=== PATIENT | female | born 1995 | race Caucasian/White ===

== ENCOUNTER 2016-07-01 14:42 | Emergency (ER) | payer OTHER ==
[~2016-07-01 14:42] MED LIST: ACYCLOVIR200 MG PO; CORRECTOL100 MG PO; IBUPROFEN200 M1 PO; OXYCODONE/ACETA1 TA1 PO; PRENATABS RX PO; TAMIFLU75 MG PO
--- NOTE | 2016-07-01 15:18 | ED CLINICAL REPORT ---
Clinical Report - Physicians/Mid Levels [facility] [address] [place] [address] 07/01/2016 14:42 [id number] Time Seen: 14:56; upon arrival, initial patient contact, initial documentation, patient care assumed. Arrived- By private vehicle. Historian- patient. HISTORY OF PRESENT ILLNESS Chief Complaint: EYE PAIN, REDNESS and IRRITATION. This started about 5 days ago, involves the left eye, is characterized as mild and has been constant and is still present. The patient did not sustain an injury. Eye discomfort, burning, redness, irritation and discharge. No eye itching, eyelid swelling, blurred vision, double vision or decreased vision. No loss of vision. Recent medical care: The patient was seen in a clinic recently. Seen for same infection, went to walk in clinic, given rx eye drops, doens't know the name of them, eye is no better so came here. Evaluation/treatment- says eye was stained and examined and that they didn't find anything. Diagnosis: eye infection and conjunctivitis. REVIEW OF SYSTEMS All systems otherwise negative, except as recorded above. PAST HISTORY See nurses notes. PROBLEMS: Dizziness. Back Pain. Chronic Back Pain. --14:55 Meghan Rader R.N. Herpes Genitalis. Headache. Immunizations. Abdominal Pain. STD - Sexually Transmitted Disease. --14:56 Meghan Rader R.N. ADDITIONAL SURGERIES: no known surgeries. She does not wear contact lenses. SOCIAL HISTORY Light tobacco smoker. No alcohol use or drug use. FAMILY HISTORY No significant family medical history. ADDITIONAL NOTES The nursing notes have been reviewed with agreement regarding the chief complaint, HPI, ROS, PMH and patient medications and allergies. PHYSICAL EXAM Vital Signs: 07/01/2016 14:52 BP: 125/91. HR: 84. RR: 18. O2 saturation: 99%. Temp: 98.6 F. Pain level now: 0/10. Have been reviewed as normal. Appearance: Alert. Oriented X3. No acute distress. Rt Eye: Right eye exam normal. Eyes: Left eyelid everted for examination. Left cornea examined with fluorescein stain. Eyelids appear normal to inspection. Conjunctivae and sclerae do not appear normal to inspection. Corneas appear normal to inspection. Pupils equal, round and reactive to light. Accommodation normal. Funduscopic exam normal. Visual cannon normal. EOMs intact. Periorbital areas appear normal to inspection. Anterior chambers clear. Anterior chambers of normal depth. Lt Eye: Left eye exam normal. Internal stye with swelling. No associated erythema. Mild conjunctival edema. Moderate exudate present. Fluorescein dye uptake on the cornea. No corneal foreign body or abrasion. No other corneal abnormality. Neck: Neck supple. Normal inspection. Respiratory: No respiratory distress. Skin: No rash. Extremities: Extremities negative. Neuro: Oriented X 3. Mood/affect normal. No motor deficit. No sensory deficit. PROGRESS AND PROCEDURES PROCEDURES (L eye examined under wood lamp using properacaine eye drops, fluorscein stain, mild dye update at 5:00 position, appears linear rub molina, very tiny upper lid chalazion seen in medial side, no fb and rest of exam unremarkable). Course of Care: nurse called pt's pharmacy to find out eye drop rx, ofloxacin. Patient counseled in person regarding the patient's stable condition and diagnosis. Differential Diagnosis: Other possible considerations: conjunctivitis - allergic, bacterial, viral, fb, corneal abrasion. Above considerations are based on history and physical exam. Differential diagnosis was discussed with patient. Disposition: Discharged home in good and unchanged condition (15:18). Condition: good and stable. CLINICAL IMPRESSION Acute mucopurulent conjunctivitis of the left eye. INSTRUCTIONS (stop other eye drop). Warnings: GENERAL WARNINGS: Return or contact your physician immediately if your condition worsens or changes unexpectedly, if not improving as expected, or if other problems arise. Specifically return if problem worsens. Prescription Medications: Polytrim ophthalmic solution: Instill 1 drop into affected eye every 3 hours while awake (max 6 doses per day) for 1 week. Dispense five (5) mL. No refills. Substitution is permissible. Understanding of the discharge instructions verbalized by patient. Follow-up with: Ewa Wong MD, Ophthalmology, [facility], [address] [place] [address] - [address], [place] [address]; Trip Rodriguez MD, Ophthalmology, , [facility], [address] [place] [address]; Rory Gonzalez MD, Ophthalmology, , [address], [place], [facility]; Trip Mcmanus MD, Ophthalmology, , [address], [place] [address]; Mario Kern MD, Ophthalmology, , [address], [place], [facility]; Matheus Coker MD, Ophthalmology, , [address], , [place], [facility]; Sherry Hughes MD, Ophthalmology, , [address], [place] [address]; Trip Araujo MD, Ophthalmology, , [facility], [address] [place] [address] Follow up in about two days even if well. Call for an appointment. Summary of care provided to patient. (Electronically signed by Desirae Stahl A.R.N.P. 07/01/2016 16:01)
--- NOTE | 2016-07-01 15:18 | ED CLINICAL REPORT ---
Clinical Report - Physicians/Mid Levels [facility] [address] [place] [address] 07/01/2016 14:42 [id number] Time Seen: 14:56; upon arrival, initial patient contact, initial documentation, patient care assumed. Arrived- By private vehicle. Historian- patient. HISTORY OF PRESENT ILLNESS Chief Complaint: EYE PAIN, REDNESS and IRRITATION. This started about 5 days ago, involves the left eye, is characterized as mild and has been constant and is still present. The patient did not sustain an injury. Eye discomfort, burning, redness, irritation and discharge. No eye itching, eyelid swelling, blurred vision, double vision or decreased vision. No loss of vision. Recent medical care: The patient was seen in a clinic recently. Seen for same infection, went to walk in clinic, given rx eye drops, doens't know the name of them, eye is no better so came here. Evaluation/treatment- says eye was stained and examined and that they didn't find anything. Diagnosis: eye infection and conjunctivitis. REVIEW OF SYSTEMS All systems otherwise negative, except as recorded above. PAST HISTORY See nurses notes. PROBLEMS: Dizziness. Back Pain. Chronic Back Pain. --14:55 Meghan Rader R.N. Herpes Genitalis. Headache. Immunizations. Abdominal Pain. STD - Sexually Transmitted Disease. --14:56 Meghan Rader R.N. ADDITIONAL SURGERIES: no known surgeries. She does not wear contact lenses. SOCIAL HISTORY Light tobacco smoker. No alcohol use or drug use. FAMILY HISTORY No significant family medical history. ADDITIONAL NOTES The nursing notes have been reviewed with agreement regarding the chief complaint, HPI, ROS, PMH and patient medications and allergies. PHYSICAL EXAM Vital Signs: 07/01/2016 14:52 BP: 125/91. HR: 84. RR: 18. O2 saturation: 99%. Temp: 98.6 F. Pain level now: 0/10. Have been reviewed as normal. Appearance: Alert. Oriented X3. No acute distress. Rt Eye: Right eye exam normal. Eyes: Left eyelid everted for examination. Left cornea examined with fluorescein stain. Eyelids appear normal to inspection. Conjunctivae and sclerae do not appear normal to inspection. Corneas appear normal to inspection. Pupils equal, round and reactive to light. Accommodation normal. Funduscopic exam normal. Visual cannon normal. EOMs intact. Periorbital areas appear normal to inspection. Anterior chambers clear. Anterior chambers of normal depth. Lt Eye: Left eye exam normal. Internal stye with swelling. No associated erythema. Mild conjunctival edema. Moderate exudate present. Fluorescein dye uptake on the cornea. No corneal foreign body or abrasion. No other corneal abnormality. Neck: Neck supple. Normal inspection. Respiratory: No respiratory distress. Skin: No rash. Extremities: Extremities negative. Neuro: Oriented X 3. Mood/affect normal. No motor deficit. No sensory deficit. PROGRESS AND PROCEDURES PROCEDURES (L eye examined under wood lamp using properacaine eye drops, fluorscein stain, mild dye update at 5:00 position, appears linear rub molina, very tiny upper lid chalazion seen in medial side, no fb and rest of exam unremarkable). Course of Care: nurse called pt's pharmacy to find out eye drop rx, ofloxacin. Patient counseled in person regarding the patient's stable condition and diagnosis. Differential Diagnosis: Other possible considerations: conjunctivitis - allergic, bacterial, viral, fb, corneal abrasion. Above considerations are based on history and physical exam. Differential diagnosis was discussed with patient. Disposition: Discharged home in good and unchanged condition (15:18). Condition: good and stable. CLINICAL IMPRESSION Acute mucopurulent conjunctivitis of the left eye. INSTRUCTIONS (stop other eye drop). Warnings: GENERAL WARNINGS: Return or contact your physician immediately if your condition worsens or changes unexpectedly, if not improving as expected, or if other problems arise. Specifically return if problem worsens. Prescription Medications: Polytrim ophthalmic solution: Instill 1 drop into affected eye every 3 hours while awake (max 6 doses per day) for 1 week. Dispense five (5) mL. No refills. Substitution is permissible. Understanding of the discharge instructions verbalized by patient. Follow-up with: Ewa Wong MD, Ophthalmology, [facility], [address] [place] [address] - [address], [place] [address]; Trip Rodriguez MD, Ophthalmology, , [facility], [address] [place] [address]; Rory Gonzalez MD, Ophthalmology, , [address], [place], [facility]; Trip Mcmanus MD, Ophthalmology, , [address], [place] [address]; Mario Kern MD, Ophthalmology, , [address], [place], [facility]; Matheus Coker MD, Ophthalmology, , [address], , [place], [facility]; Sherry Hughes MD, Ophthalmology, , [address], [place] [address]; Trip Araujo MD, Ophthalmology, , [facility], [address] [place] [address] Follow up in about two days even if well. Call for an appointment. Summary of care provided to patient. (Electronically signed by Desirae Stahl A.R.N.P. 07/01/2016 16:01)
--- NOTE | 2016-07-01 15:18 | ED NURSING NOTES ---
Clinical Report - Nurses [facility] [address] [place] [address] 07/01/2016 14:42 [id number] TRI[facility] Triage time 14:52 Jul 01 2016. Acuity: LEVEL 4. Chief Complaint: REDNESS TO RIGHT EYE. 14:59 07/01/16. SEPSIS SCREEN: Sepsis Screen. Negative (no infection suspected/documented). ADORE COMA SCORE: [place] Coma Scale: 15- eyes open spontaneously (4); best verbal response- oriented x 4 (5); best motor response- obeys commands (6). --14:59 Meghan Rader R.N. 14:52 07/01/16. BP: 125/91 (large adult cuff) taken on the left arm, while sitting. HR: 84. RR: 18. O2 saturation: 99% on room air. Temp: 98.6 F (oral). Pain level now: 0/10. --14:59 Meghan Rader R.N. Weight: 99.7 kg stated. Height/Length: 62 inches Per Patient. BMI: 40.2. --14:55 Meghan Rader R.N. Medications Acyclovir Oral, as needed. Suboxone Sublingual. --14:55 Meghan Rader R.N. Allergies Amoxicillin. --14:55 Meghan Rader R.N. History Arrived by private vehicle. Historian: patient. Accompanied by family. Primary physician (Dr Rausch). Onset. (5 days ago). She did not sustain an injury. ( Patient has redness, oozing, watering, in left eye. She has been using eye drops x 3 days. Nutrition Partner son had pinkeye). She has had a moderate amount of discharge from the left eye. 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 PAST MEDICAL HX: Immunizations: status is unknown. Last normal menstrual period- 1 weeks ago. SOCIAL HX: Current every day light tobacco smoker- less than 1/2 a pack per day. No alcohol use or drug use. No infectious disease exposure. ABUSE ASSESSMENT: No report of abuse. --14:59 Meghan Rader R.N. PROBLEMS: Dizziness. Back Pain. Chronic Back Pain. --14:55 Meghan Rader R.N. Herpes Genitalis. Headache. Immunizations. Abdominal Pain. STD - Sexually Transmitted Disease. --14:56 Meghan Rader R.N. ADDITIONAL SURGERIES: no known surgeries. Interventions ID band on patient. To treatment room. --14:59 Meghan Rader R.N. PHYSICAL ASSESSMENT 15:00 07/01/16. Ambulatory to room. GENERAL / NEURO / PSYCH: Alert. Appears in no acute distress. HEENT: No facial asymmetry noted. Pupils equal, round and reactive to light. Runny nose. RESPIRATORY: Respirations not labored. CVS: Capillary refill less than 2 seconds. SKIN: Skin is warm. Normal skin turgor. --15:00 Meghan Rader R.N. HEENT: Visual acuity: left eye 20/40; right eye 20/70. --15:03 Meghan Rader R.N. NURSING PROGRESS NOTES The plan of care for this patient has been created. Patient gowned. Head of bed elevated. Reassurance given. Two patient identifiers checked. Call light placed in reach. Side rails up x 1. Bed placed in lowest position. Brakes of bed on. Patient ready for evaluation- chart flagged and FOUNDRY MOLDER notified. --15:01 Meghan Rader R.N. 15:16 07/01/2016 Proparacaine Eye Drops Opthalmic solution 2 drop given. Given in the left eye. Allergies verified and confirmed 5 rights. --15:16 Meghan Rader R.N. 15:16 07/01/2016 FLUORESCEIN Opth soln Opthalmic solution 1 Strip given. Given in the left eye. Allergies verified and confirmed 5 rights. --15:16 Meghan Rader R.N. DISPOSITION / DISCHARGE Departure time: 15:47 Jul 01 2016. Condition at departure: unchanged. No learning barriers present. Discharge instructions provided and reviewed with the patient. Reviewed medication(s) side effects, precautions and dosing information. Prescription(s) given to the patient. Treatments reviewed (eye care). Reviewed referral to an irrigationist designer. Patient verbalized understanding. Written instructions provided in Egyptian. The patient was discharged by the nurse practitioner. She was discharged home and accompanied by perinatal tech. She left the Emergency Department ambulatory. Photonics Engineering Technologist driving. --15:47 Meghan Rader R.N. 15:45 07/01/16. BP: 122/86 (large adult cuff) taken on the left arm, while sitting. HR: 80. RR: 16. O2 saturation: 100% on room air. Temp: 98.6 F (oral). Pain level now: 0/10. --15:47 Meghan Rader R.N. Locked/Released at 07/01/2016 15:47 by Meghan Rader R.N.
--- NOTE | 2016-07-01 15:18 | ED NURSING NOTES ---
Clinical Report - Nurses [facility] [address] [place] [address] 07/01/2016 14:42 [id number] TRI[facility] Triage time 14:52 Jul 01 2016. Acuity: LEVEL 4. Chief Complaint: REDNESS TO RIGHT EYE. 14:59 07/01/16. SEPSIS SCREEN: Sepsis Screen. Negative (no infection suspected/documented). ADORE COMA SCORE: [place] Coma Scale: 15- eyes open spontaneously (4); best verbal response- oriented x 4 (5); best motor response- obeys commands (6). --14:59 Meghan Rader R.N. 14:52 07/01/16. BP: 125/91 (large adult cuff) taken on the left arm, while sitting. HR: 84. RR: 18. O2 saturation: 99% on room air. Temp: 98.6 F (oral). Pain level now: 0/10. --14:59 Meghan Rader R.N. Weight: 99.7 kg stated. Height/Length: 62 inches Per Patient. BMI: 40.2. --14:55 Meghan Rader R.N. Medications Acyclovir Oral, as needed. Suboxone Sublingual. --14:55 Mgehan Rader R.N. Allergies Amoxicillin. --14:55 Meghan Rader R.N. History Arrived by private vehicle. Historian: patient. Accompanied by family. Primary physician (Dr Rausch). Onset. (5 days ago). She did not sustain an injury. ( Patient has redness, oozing, watering, in left eye. She has been using eye drops x 3 days. Director Of Teaching And Learning son had pinkeye). She has had a moderate amount of discharge from the left eye. 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 PAST MEDICAL HX: Immunizations: status is unknown. Last normal menstrual period- 1 weeks ago. SOCIAL HX: Current every day light tobacco smoker- less than 1/2 a pack per day. No alcohol use or drug use. No infectious disease exposure. ABUSE ASSESSMENT: No report of abuse. --14:59 Meghan Rader R.N. PROBLEMS: Dizziness. Back Pain. Chronic Back Pain. --14:55 Meghan Rader R.N. Herpes Genitalis. Headache. Immunizations. Abdominal Pain. STD - Sexually Transmitted Disease. --14:56 Meghan Rader R.N. ADDITIONAL SURGERIES: no known surgeries. Interventions ID band on patient. To treatment room. --14:59 Meghan Rader R.N. PHYSICAL ASSESSMENT 15:00 07/01/16. Ambulatory to room. GENERAL / NEURO / PSYCH: Alert. Appears in no acute distress. HEENT: No facial asymmetry noted. Pupils equal, round and reactive to light. Runny nose. RESPIRATORY: Respirations not labored. CVS: Capillary refill less than 2 seconds. SKIN: Skin is warm. Normal skin turgor. --15:00 Meghan Rader R.N. HEENT: Visual acuity: left eye 20/40; right eye 20/70. --15:03 Meghan Rader R.N. NURSING PROGRESS NOTES The plan of care for this patient has been created. Patient gowned. Head of bed elevated. Reassurance given. Two patient identifiers checked. Call light placed in reach. Side rails up x 1. Bed placed in lowest position. Brakes of bed on. Patient ready for evaluation- chart flagged and INFORMATION TECHNOLOGY AUDIT MANAGER notified. --15:01 Meghan Rader R.N. 15:16 07/01/2016 Proparacaine Eye Drops Opthalmic solution 2 drop given. Given in the left eye. Allergies verified and confirmed 5 rights. --15:16 Meghan Rader R.N. 15:16 07/01/2016 FLUORESCEIN Opth soln Opthalmic solution 1 Strip given. Given in the left eye. Allergies verified and confirmed 5 rights. --15:16 Meghan Rader R.N. DISPOSITION / DISCHARGE Departure time: 15:47 Jul 01 2016. Condition at departure: unchanged. No learning barriers present. Discharge instructions provided and reviewed with the patient. Reviewed medication(s) side effects, precautions and dosing information. Prescription(s) given to the patient. Treatments reviewed (eye care). Reviewed referral to an stock control supervisor. Patient verbalized understanding. Written instructions provided in Irish. The patient was discharged by the nurse practitioner. She was discharged home and accompanied by tobacco wetter. She left the Emergency Department ambulatory. Steelworker driving. --15:47 Meghan Rader R.N. 15:45 07/01/16. BP: 122/86 (large adult cuff) taken on the left arm, while sitting. HR: 80. RR: 16. O2 saturation: 100% on room air. Temp: 98.6 F (oral). Pain level now: 0/10. --15:47 Meghan Rader R.N. Locked/Released at 07/01/2016 15:47 by Meghan Rader R.N.
--- NOTE | 2016-07-01 15:19 | ED ORDER SUMMARY ---
..... Patient: SILVANA NORTON OrderSheet [facility] VisitID: [id number] [address] [place] [address] 20y, F Registration Date/Time: 07/01/2016 ORDER SHEET Weight: 99.7 kg (stated) Allergies: Amoxicillin GENERAL ORDERS: MEDICATION ORDERS: Proparacaine Eye Drops (Solution 0.5 %) 2 drops (place at bedside) (15:04 07/01/2016 HBivens A.R.N.P.) (15:16 Bakaris R.N.) Fluorescein Eye Strips 1 strips (NOW) (15:04 07/01/2016 HBivens A.R.N.P.) (15:16 JSanders R.N.) IV FLUIDS: ORDER SHEET NOTES: [Electronically signed by Meghan Rader R.N. (15:47 07/01/2016)] [Electronically signed by Desirae StahlR.N.P. (16:01 07/01/2016)] [Electronically locked/signed by Meghan Rader R.N. (15:47 07/01/2016)]
--- NOTE | 2016-07-01 15:19 | ED ORDER SUMMARY ---
..... Patient: SILVANA NORTON OrderSheet [facility] VisitID: [id number] [address] [place] [address] 20y, F Registration Date/Time: 07/01/2016 ORDER SHEET Weight: 99.7 kg (stated) Allergies: Amoxicillin GENERAL ORDERS: MEDICATION ORDERS: Proparacaine Eye Drops (Solution 0.5 %) 2 drops (place at bedside) (15:04 07/01/2016 HBivens A.R.N.P.) (15:16 Bakaris R.N.) Fluorescein Eye Strips 1 strips (NOW) (15:04 07/01/2016 HBivens A.R.N.P.) (15:16 JSanders R.N.) IV FLUIDS: ORDER SHEET NOTES: [Electronically signed by Meghan Rader R.N. (15:47 07/01/2016)] [Electronically signed by Desirae StahlR.N.P. (16:01 07/01/2016)] [Electronically locked/signed by Meghan Rader R.N. (15:47 07/01/2016)]
--- NOTE | 2016-07-01 16:02 | ED MAR SUMMARY ---
..... Medication Administration Record [facility] [address] [place] [address] Patient: SILVANA NORTON Visit ID: [id number] 20y, F Weight: 99.7 kg Height/Length: 62 in BMI: 40.2 ALLERGIES: Amoxicillin Given 15:16 07/01/2016 Meghan Rader RDes Medication Administered: PROPARACAINE [EYE DROPS], Dose: 2 drop Opthalmic solution Eye Drops. Medication Ordered: Proparacaine Eye Drops (Solution 0.5 %) 2 drops (place at bedside). Given 15:16 07/01/2016 Meghan Rader, RRaniNRani Medication Administered: FLUORESCEIN [EYE STRIPS], Dose: 1 Strip Opthalmic solution Opth soln. Medication Ordered: Fluorescein Eye Strips 1 strips (NOW).
--- NOTE | 2016-07-01 16:02 | ED MAR SUMMARY ---
..... Medication Administration Record [facility] [address] [place] [address] Patient: SILVANA NORTON Visit ID: [id number] 20y, F Weight: 99.7 kg Height/Length: 62 in BMI: 40.2 ALLERGIES: Amoxicillin Given 15:16 07/01/2016 Meghan Rader RDes Medication Administered: PROPARACAINE [EYE DROPS], Dose: 2 drop Opthalmic solution Eye Drops. Medication Ordered: Proparacaine Eye Drops (Solution 0.5 %) 2 drops (place at bedside). Given 15:16 07/01/2016 Meghan Rader, RRaniNRani Medication Administered: FLUORESCEIN [EYE STRIPS], Dose: 1 Strip Opthalmic solution Opth soln. Medication Ordered: Fluorescein Eye Strips 1 strips (NOW).
--- NOTE | 2016-07-01 16:02 | ED DISCHARGE INSTRUCTIONS ---
Patient: SILVANA NORTON General Instructions [facility] VisitID: [id number] [place] [address] 20y, F Registration Date/Time: 07/01/2016 INSTRUCTIONS (stop other eye drop). Warnings: GENERAL WARNINGS: Return or contact your physician immediately if your condition worsens or changes unexpectedly, if not improving as expected, or if other problems arise. Specifically return if problem worsens. Prescription Medications: Polytrim ophthalmic solution: Instill 1 drop into affected eye every 3 hours while awake (max 6 doses per day) for 1 week. Dispense five (5) mL. No refills. Substitution is permissible. Understanding of the discharge instructions verbalized by patient. Follow-up with: Ewa Wong MD, Ophthalmology, [facility], [address] [place] [address] - [address], [place] [address]; Trip Rodriguez MD, Ophthalmology, , [facility], [address] [place] [address]; Rory Gonzalez MD, Ophthalmology, , [address], [place] [address]; Trip Mcmanus MD, Ophthalmology, , [address], [place] [address]; Mario Kern MD, Ophthalmology, , [address] [address]; Mathesu Coker MD, Ophthalmology, , [address], [place] [address]; Sherry Hughes MD, Ophthalmology, , [address], [place] [address]; Trip Araujo MD, Ophthalmology, , [facility] [place] [address] Follow up in about two days even if well. Call for an appointment. Summary of care provided to patient. ADDITIONAL INFORMATION Conjunctivitis, Non-Specific The membrane that covers your eye is inflamed. Any itching, burning or irritation should go away within the next 24 hours. Conjunctivitis may be related to a particle that was in your eye. If so, it was washed out with your tears or irrigation treatment. Being exposed to liquid chemicals or fumes may also cause this reaction. Your condition does not appear to be due to an eye infection. Home Care: Apply a cold pack (ice in a plastic bag, wrapped in a towel) over the eye for 20 minutes at a time. This will reduce pain. Eye drops may be prescribed to reduce irritation or redness. Otherwise, Visine or similar [id number] decongestant eye drops may be used. You may use acetaminophen (Tylenol) or ibuprofen (Motrin, Advil) to control pain, unless another medicine was prescribed. [ NOTE: If you have chronic liver or kidney disease or ever had a stomach ulcer or GI bleeding, talk with your doctor before using these medicines.] Follow Up with your doctor or this facility as directed, or if your symptoms have not improved after 24 hours. Get Prompt Medical Attention if any of the following occur: Increased eyelid swelling Increase in eye pain Increased redness or drainage from the eye Failure of normal vision to return within 24-48 hours. Trimethoprim Sulfate, Polymyxin B Sulfate Eye drops, solution What is this medicine? POLYMYXIN B and TRIMETHOPRIM (hayley i MIX in B and trye METH oh prim) eye drops treat certain eye infections caused by bacteria. How should I use this medicine? This medicine is used in the eye. Follow the directions on the prescription label. Wash your hands before and after use. Tilt your head back slightly. Pull your lower eyelid down gently to form a pouch. Do not touch the tip of the dropper to your eye, fingertips, or other surface. Squeeze the prescribed number of drops into the pouch. Close the eye gently to spread the drops. Use your medicine at regular intervals. Do not take your medicine more often than directed. Use all of your medicine as directed even if you think your are better. Do not skip doses or stop your medicine early. Talk to your senior medical technologist regarding the use of this medicine in children. While this drug may be prescribed for children and infants for selected conditions, precautions do apply. What side effects may I notice from receiving this medicine? Side effects that you should report to your doctor or health residential care officer as soon as possible: burning, stinging, or swelling change in vision or blurred vision that will not go away eye pain itching and redness rash Side effects that usually do not require medical attention (report to your doctor or health residential care officer if they continue or are bothersome): temporary blurred vision after applying temporary watering or stinging What may interact with this medicine? Interactions are not expected. Do not use any other eye products without advice of your doctor or health residential care officer. What if I miss a dose? If you miss a dose, use it as soon as you can. If it is almost time for your next dose, use only that dose. Do not use double or extra doses. Where should I keep my medicine? Keep out of the reach of children. Store at room temperature 15 to 25 degrees C (59 to 77 degrees F). Protect from light. To prevent the spread of infection, it is best to throw away any unused eye drops after you finish the course of treatment. Throw away any unused medicine after the expiration date. What should I tell my health care provider before I take this medicine? They need to know if you have any of these conditions: wear contact lenses an unusual or allergic reaction to polymyxin B, trimethoprim, other medicines, foods, dyes, or preservatives or trying to get breast-feeding What should I watch for while using this medicine? Check with your doctor or health residential care officer if your condition does not get better after 5 days, or if it gets worse. If you wear contact lenses, ask when you can use your lenses again. A burning or stinging reaction that does not go away may mean you are allergic to this product. Stop use and call your doctor or health residential care officer. To prevent the spread of infection, do not share eye products or other personal items with anyone else. You have been given the following additional information: Conjunctivitis, Non-Specific Trimethoprim Sulfate, Polymyxin B Sulfate Eye drops, solution (Electronically signed by Desirae Stahl A.R.N.P. 07/01/2016 16:01)
--- NOTE | 2016-07-01 16:02 | ED MED RECONCILIATION SUMMARY ---
Patient: SILVANA NORTON Medication Reconciliation Report [facility] VisitID: [id number] [address] [place] [address] 20y, F Registration Date/Time: 07/01/2016 Weight: 99.7 kg Height/Length: 62 in. BMI: 40.2 ALLERGIES: Amoxicillin The patient's Home Medications are listed below: THE FOLLOWING MEDICATIONS NEED TO BE RECONCILED: Acyclovir Oral Suboxone Sublingual The source(s) of the original Home Medication information: Not obtained. The following Medications were given to the patient in the Emergency Department: Proparacaine [Eye Drops] Eye Drops 2 drop, administered: 07/01/2016 3:16:00 PM FLUORESCEIN [EYE STRIPS] Opth soln 1 Strip, administered: 07/01/2016 3:16:00 PM The following Medications were prescribed to the patient: Polytrim ophthalmic solution: Instill 1 drop into affected eye every 3 hours while awake (max 6 doses per day) for 1 week. Dispense five (5) mL. No refills. Substitution is permissible. -- Desirae Stahl A.R.N.P.
--- NOTE | 2016-07-01 16:02 | ED MED RECONCILIATION SUMMARY ---
Patient: SILVANA NORTON Medication Reconciliation Report [facility] VisitID: [id number] [address] [place] [address] 20y, F Registration Date/Time: 07/01/2016 Weight: 99.7 kg Height/Length: 62 in. BMI: 40.2 ALLERGIES: Amoxicillin The patient's Home Medications are listed below: THE FOLLOWING MEDICATIONS NEED TO BE RECONCILED: Acyclovir Oral Suboxone Sublingual The source(s) of the original Home Medication information: Not obtained. The following Medications were given to the patient in the Emergency Department: Proparacaine [Eye Drops] Eye Drops 2 drop, administered: 07/01/2016 3:16:00 PM FLUORESCEIN [EYE STRIPS] Opth soln 1 Strip, administered: 07/01/2016 3:16:00 PM The following Medications were prescribed to the patient: Polytrim ophthalmic solution: Instill 1 drop into affected eye every 3 hours while awake (max 6 doses per day) for 1 week. Dispense five (5) mL. No refills. Substitution is permissible. -- Desirae Stahl A.R.N.P.
--- NOTE | 2016-07-01 16:02 | ED DISCHARGE INSTRUCTIONS ---
Patient: SILVANA NORTON General Instructions [facility] VisitID: [id number] [place] [address] 20y, F Registration Date/Time: 07/01/2016 INSTRUCTIONS (stop other eye drop). Warnings: GENERAL WARNINGS: Return or contact your physician immediately if your condition worsens or changes unexpectedly, if not improving as expected, or if other problems arise. Specifically return if problem worsens. Prescription Medications: Polytrim ophthalmic solution: Instill 1 drop into affected eye every 3 hours while awake (max 6 doses per day) for 1 week. Dispense five (5) mL. No refills. Substitution is permissible. Understanding of the discharge instructions verbalized by patient. Follow-up with: Ewa Wong MD, Ophthalmology, [facility], [address] [place] [address] - [address], [place] [address]; Trip Rodriguez MD, Ophthalmology, , [facility], [address] [place] [address]; Rory Gonzalez MD, Ophthalmology, , [address], [place] [address]; Trip Mcmanus MD, Ophthalmology, , [address], [place] [address]; Mario Kern MD, Ophthalmology, , [address] [address]; Matheus Coker MD, Ophthalmology, , [address], [place] [address]; Sherry Hughes MD, Ophthalmology, , [address], [place] [address]; Trip Araujo MD, Ophthalmology, , [facility] [place] [address] Follow up in about two days even if well. Call for an appointment. Summary of care provided to patient. ADDITIONAL INFORMATION Conjunctivitis, Non-Specific The membrane that covers your eye is inflamed. Any itching, burning or irritation should go away within the next 24 hours. Conjunctivitis may be related to a particle that was in your eye. If so, it was washed out with your tears or irrigation treatment. Being exposed to liquid chemicals or fumes may also cause this reaction. Your condition does not appear to be due to an eye infection. Home Care: Apply a cold pack (ice in a plastic bag, wrapped in a towel) over the eye for 20 minutes at a time. This will reduce pain. Eye drops may be prescribed to reduce irritation or redness. Otherwise, Visine or similar errv-[id number]-[id number] decongestant eye drops may be used. You may use acetaminophen (Tylenol) or ibuprofen (Motrin, Advil) to control pain, unless another medicine was prescribed. [ NOTE: If you have chronic liver or kidney disease or ever had a stomach ulcer or GI bleeding, talk with your doctor before using these medicines.] Follow Up with your doctor or this facility as directed, or if your symptoms have not improved after 24 hours. Get Prompt Medical Attention if any of the following occur: Increased eyelid swelling Increase in eye pain Increased redness or drainage from the eye Failure of normal vision to return within 24-48 hours. Trimethoprim Sulfate, Polymyxin B Sulfate Eye drops, solution What is this medicine? POLYMYXIN B and TRIMETHOPRIM (hayley i MIX in B and trye METH oh prim) eye drops treat certain eye infections caused by bacteria. How should I use this medicine? This medicine is used in the eye. Follow the directions on the prescription label. Wash your hands before and after use. Tilt your head back slightly. Pull your lower eyelid down gently to form a pouch. Do not touch the tip of the dropper to your eye, fingertips, or other surface. Squeeze the prescribed number of drops into the pouch. Close the eye gently to spread the drops. Use your medicine at regular intervals. Do not take your medicine more often than directed. Use all of your medicine as directed even if you think your are better. Do not skip doses or stop your medicine early. Talk to your engineering group leader regarding the use of this medicine in children. While this drug may be prescribed for children and infants for selected conditions, precautions do apply. What side effects may I notice from receiving this medicine? Side effects that you should report to your doctor or health career technical education instructor as soon as possible: burning, stinging, or swelling change in vision or blurred vision that will not go away eye pain itching and redness rash Side effects that usually do not require medical attention (report to your doctor or health career technical education instructor if they continue or are bothersome): temporary blurred vision after applying temporary watering or stinging What may interact with this medicine? Interactions are not expected. Do not use any other eye products without advice of your doctor or health career technical education instructor. What if I miss a dose? If you miss a dose, use it as soon as you can. If it is almost time for your next dose, use only that dose. Do not use double or extra doses. Where should I keep my medicine? Keep out of the reach of children. Store at room temperature 15 to 25 degrees C (59 to 77 degrees F). Protect from light. To prevent the spread of infection, it is best to throw away any unused eye drops after you finish the course of treatment. Throw away any unused medicine after the expiration date. What should I tell my health care provider before I take this medicine? They need to know if you have any of these conditions: wear contact lenses an unusual or allergic reaction to polymyxin B, trimethoprim, other medicines, foods, dyes, or preservatives or trying to get breast-feeding What should I watch for while using this medicine? Check with your doctor or health career technical education instructor if your condition does not get better after 5 days, or if it gets worse. If you wear contact lenses, ask when you can use your lenses again. A burning or stinging reaction that does not go away may mean you are allergic to this product. Stop use and call your doctor or health career technical education instructor. To prevent the spread of infection, do not share eye products or other personal items with anyone else. You have been given the following additional information: Conjunctivitis, Non-Specific Trimethoprim Sulfate, Polymyxin B Sulfate Eye drops, solution (Electronically signed by Desirae Stahl A.R.N.P. 07/01/2016 16:01)
== END 2016-07-01 15:47 | disposition home or self-care (01) ==
LOC: ED SRH 14:42
DX: H10.022 Other mucopurulent conjunctivitis, left eye (principal); F17.210 Nicotine dependence, cigarettes, uncomplicated; Z88.0 Allergy status to penicillin